=== PATIENT | female | born 1965 | race Caucasian/White ===

== ENCOUNTER 2017-03-25 21:00 | Emergency (ER) | payer MEDICAID ==
[2017-03-25 21:43] VITALS: BP 164/98
--- NOTE | 2017-03-25 22:22 | EDM.PDOC ---
ED HPI GENERAL MEDICAL PROBLEM - General Chief Complaint: Genitourinary Problem Stated Complaint: BLADDER/UTI? Time Seen by Provider: 03/25/17 21:46 Source of Information: Reports: Patient History Limitations: Reports: No Limitations - History of Present Illness INITIAL COMMENTS - FREE TEXT/NARRATIVE: 51 yo female presents with burning and itching external genitalia. scant Curd like discharge with red inflammation reported by pt. UTI 2 weeks ago treated with antibiotics and she commonly gets yeast infections after antibiotics. Epigastric pain worse after she uses ibuprofen and also after vomiting. But she does clarify that she was vomiting because she had drank to much alcohol the night before. Pain in upper ABD is rather mild tonight and she does not desire to evaluate this pain in the ER she would like to follow up with her primary care provider. 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, NSAIDS lower abdomen pain Pain Score (Numeric/FACES): 7 - Related Data Allergies Allergy/AdvReac Type Severity Reaction Status Date / Time celecoxib [From Celebrex] Allergy Airway Verified 03/25/17 21:45 Tightness Sulfa (Sulfonamide Allergy Airway Verified 03/25/17 21:45 Antibiotics) Tightness Tetracyclines Allergy Airway Verified 03/25/17 21:45 Tightness Home Meds: Home Meds Carvedilol [Coreg] 12.5 mg PO BID 03/25/17 [History] Cyclobenzaprine [Flexeril] 10 mg PO TID 03/25/17 [History] HCTZ/Triamterene [Dyazide 25-37.5 MG] 1 cap PO DAILY 03/25/17 [History] Levothyroxine Sodium [Synthroid] 25 mcg PO ACBREAKFAST 03/25/17 [History] atorvaSTATin [Lipitor] 20 mg PO BEDTIME 03/25/17 [History] Past Medical History HEENT History: Reports: Impaired Vision Cardiovascular History: Reports: High Cholesterol, Hypertension Respiratory History: Reports: COPD Gastrointestinal History: Reports: Irritable Bowel Syndrome Genitourinary History: Reports: UTI, Recurrent 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: Endometrial Ablation, Musculoskeletal History: Reports: Back Pain, Chronic, Other (See Below) Other Musculoskeletal History: Chronic right hip pain Neurological History: Reports: None Psychiatric History: Reports: None Endocrine/Metabolic History: Reports: Hypothyroidism Hematologic History: Reports: None Immunologic History: Reports: None Oncologic (Cancer) History: Reports: None Dermatologic History: Reports: None - Infectious Disease History Infectious Disease History: Reports: Chicken Pox - Past Surgical History HEENT Surgical History: Reports: None Cardiovascular Surgical History: Reports: None Respiratory Surgical History: Reports: None GI Surgical History: Reports: Appendectomy, Cholecystectomy, Colonoscopy Female Surgical History: Reports: Cervical Conization, Tubal Ligation Endocrine Surgical History: Reports: None Neurological Surgical History: Reports: None Musculoskeletal Surgical History: Reports: None Oncologic Surgical History: Reports: Biopsy of Breast Dermatological Surgical History: Reports: None Social & Family History - Tobacco Use Smoking Status *Q: Current Every Day Smoker Years of Tobacco use: 3 Packs/Tins Daily: 1.5 - Caffeine Use Caffeine Use: Reports: Tea - Recreational Drug Use Recreational Drug Use: No ED ROS GENERAL - Review of Systems Review Of Systems: See Below Constitutional: Denies: Fever, Chills Respiratory: Denies: Shortness of Breath, Wheezing Cardiovascular: Denies: Chest Pain GI/Abdominal: Reports: Abdominal Pain. Denies: Diarrhea : Reports: Dysuria ED EXAM, GI/ABD - Physical Exam Exam: See Below Exam Limited By: No Limitations General Appearance: Alert, WD/WN, No Apparent Distress Head: Atraumatic, Normocephalic Respiratory/Chest: No Respiratory Distress, Lungs Clear, Normal Breath Sounds. No: Crackles, Rhonchi, Wheezing Cardiovascular: Regular Rate, Rhythm, No Murmur GI/Abdominal: Normal Bowel Sounds, Soft, Tenderness (RUQ and epigastric) Back Exam: No: CVA Tenderness (R), CVA Tenderness (L) Neurological: Alert, Oriented Psychiatric: Normal Affect Skin Exam: Warm, Dry, Intact Course - Vital Signs Last Recorded V/S: Last Vital Signs Temp 36.6 C 03/25/17 21:41 Pulse 99 03/25/17 21:41 Resp 16 03/25/17 21:41 BP 164/98 H 03/25/17 21:41 Pulse Ox 98 03/25/17 21:41 - Orders/Labs/Meds Labs: Laboratory Tests 03/25/17 Range/Units 21:43 Urine Color Yellow Urine Appearance Clear Urine pH 5.0 (4.5-8.0) Ur Specific [place] 1.010 (1.008-1.030) Urine Protein Negative (NEGATIVE) mg/dL Urine Glucose (UA) Normal (NEGATIVE) mg/dL Urine Ketones Negative (NEGATIVE) mg/dL Urine Occult Blood Negative (NEGATIVE) Urine Nitrite Negative (NEGATIVE) Urine Bilirubin Negative (NEGATIVE) Urine Urobilinogen Normal (NORMAL) mg/dL Ur Leukocyte Esterase Negative (NEGATIVE) Urine RBC 0-5 (0-5) Urine WBC Not seen (0-5) Ur Epithelial Cells Rare Amorphous Sediment Not seen Urine Bacteria Not seen Urine Mucus Not seen Meds: Medications Discontinued Medications Generic Name Dose Route Start Last Admin Trade Name Freq PRN Reason Stop Dose Admin Fluconazole 150 mg 03/25/17 22:24 Diflucan PO 03/25/17 22:25 ONETIME ONE - Re-Assessments/Exams Free Text/Narrative Re-Assessment/Exam: 03/25/17 22:34 NOrmal UA will treat for yeast infection with 1 time dose diflucan in ER. Pt does not desire to stay for evaluation of her RUQ and epigastric pain because it is mild tonight. she will follow up with primary care Departure - Departure Time of Disposition: 22:22 Disposition: Home, Self-Care 01 Condition: Good Clinical Impression: Candidal vulvitis - Discharge Information Referrals: PCP,None [Primary Care Provider] - Forms: ED Department Discharge Additional Instructions: follow-up with primary care provider regarding right upper abdominal pain. limit amount of ibuprofen you take to 400 mg every 6 hours with food. If you are having stomach pain do not take ibuprofen
[2017-03-25] MEDS ORDERED: Fluconazole 150 MG Tab PO ONE (22:24)
== END 2017-03-25 23:19 | disposition home or self-care (01) ==
LOC: JP.ED 21:00
DX: B37.3 Candidiasis of vulva and vagina (principal); I10 Essential (primary) hypertension; E78.00 Pure hypercholesterolemia, unspecified; E03.9 Hypothyroidism, unspecified; J44.9 Chronic obstructive pulmonary disease, unspecified; Z90.49 Acquired absence of other specified parts of digestive tract; Z98.890 Other specified postprocedural states; Z98.51 Tubal ligation status; F17.210 Nicotine dependence, cigarettes, uncomplicated; Z88.1 Allergy status to other antibiotic agents; Z88.2 Allergy status to sulfonamides; Z88.8 Allergy status to other drugs, medicaments and biological substances; Z79.899 Other long term (current) drug therapy; Z87.440 Personal history of urinary (tract) infections
CPT/HCPCS: 81001; 99284; A9270; 99282

== ENCOUNTER 2017-05-03 17:17 | Emergency (ER) | payer MEDICAID ==
[2017-05-03] MEDS ORDERED: methylPREDNISolone Sodium Succinate 125 MG/2 ML SDV IM ONE (17:35)
[2017-05-03] MEDS ORDERED: diphenhydrAMINE 50 MG/ML SDV IM ONE (17:35)
[2017-05-03 18:34] VITALS: BP 157/93
--- NOTE | 2017-05-26 08:39 | ER ---
DATE OF SERVICE: 05/03/2017 HISTORY OF PRESENT ILLNESS: Rubi appeared at the emergency room stating that she was thinking that she had an allergic reaction, she had facial swelling, she had a rash on her back, and felt generalized itching. The patient had eaten a plum just shortly prior to this and also had changed the cat litter and this was a different brand of cat litter that she was using at this time. Rubi was not in respiratory distress. She felt a little tight in her throat. She did not have any problems in terms of dizziness or feeling like her heart was pounding. The patient had good vital signs and was having no discomfort. PAST MEDICAL HISTORY: Was not significant for serious allergy issues. The patient was found to have a pulse of 91, temperature was normal, and she had good oxygen saturation at 97. PHYSICAL EXAMINATION: GENERAL: On exam, she was an alert and oriented 51-year-old white female. She had some obvious facial swelling, and she did have a rash on her back, which looks like it had been urticarial, but was more flat at this time. HEENT: Her pupils were equal and reactive. Her ears were clear. Nose, mouth, and throat were negative. CHEST: Her chest revealed no significant wheezing. CARDIAC: Revealed a regular rhythm without ectopy present. ABDOMEN: The patient's abdomen showed no tenderness or guarding. No CVA tenderness is present. EXTREMITIES: Normal. NEUROLOGIC: She was normal. The patient had not used Benadryl at home and she was given Benadryl 50 mg. She was then also given Solu-Medrol 125 mg. She was observed here in the ER and now she continued to feel better and better and felt like the facial swelling was going down. For that reason, she was discharged home and advised to use Benadryl 50 mg at least once or twice more every 6 hours. The patient's discharge diagnosis was an allergic reaction, unknown cause, possibly a plum or cat litter. Marianna Bill MD /[id number]
== END 2017-05-03 19:05 | disposition home or self-care (01) ==
LOC: JP.ED 17:17
DX: T78.40XA Allergy, unspecified, initial encounter (principal)
CPT/HCPCS: 96372; 99283; J1200; J2930

== ENCOUNTER 2017-06-09 19:05 | Emergency (ER) | payer MEDICAID ==
[2017-06-09 19:28] VITALS: BP 132/80
[2017-06-09] MEDS ORDERED: Alum Hydrox/Mag Hydrox/Simeth 30 ML, Lidocaine 2% 15 ML PO ONE ×2 (19:39)
[2017-06-09] MEDS ORDERED: Sodium Chloride 0.9% 10 ML Syringe FLUSH PRN ×2 (20:35→21:12)
[2017-06-09] MEDS ORDERED: Ondansetron 4 MG/2 ML SDV IVPUSH ONE (20:36)
[2017-06-09] MEDS ORDERED: HYDROmorphone 1 MG/ML Syringe IVPUSH ONE (20:36)
[2017-06-09] MEDS ORDERED: Iopamidol 612 MG/ML 150 ML Bottle IV SCH (21:15)
--- NOTE | 2017-06-09 21:23 | EDM.PDOC ---
ED HPI GENERAL MEDICAL PROBLEM - General Chief Complaint: Abdominal Pain Stated Complaint: ABDOMINAL PAIN Time Seen by Provider: 06/09/17 19:31 Source of Information: Reports: Patient History Limitations: Reports: No Limitations - History of Present Illness INITIAL COMMENTS - FREE TEXT/NARRATIVE: This lady complains of right upper quadrant abdominal pain. She's had pain in this area for about a year. The pain has suddenly gotten worse the past few days. She is occasionally mentioned this to her doctor but says nothing has been done. Previously she had a cholecystectomy and appendectomy in the more distant past. She thinks maybe she is taken to much NSAIDs. She said that when she takes ibuprofen it seems to make it worse. She denies a history of ulcers. She hasn't tried anything like antacid. She's had some nausea but not vomiting. Bowels are normal she denies fever Right Upper Abdominal Pain Score (Numeric/FACES): 10 - Related Data Allergies Allergy/AdvReac Type Severity Reaction Status Date / Time celecoxib [From Celebrex] Allergy Airway Verified 06/09/17 19:17 Tightness pregabalin [From Lyrica] Allergy Cannot Verified 06/09/17 19:17 Remember Sulfa (Sulfonamide Allergy Airway Verified 06/09/17 19:17 Antibiotics) Tightness Tetracyclines Allergy Airway Verified 06/09/17 19:17 Tightness Home Meds: Home Meds Carvedilol [Coreg] 12.5 mg PO BID 03/25/17 [History] Cyclobenzaprine [Flexeril] 10 mg PO TID 03/25/17 [History] HCTZ/Triamterene [Dyazide 25-37.5 MG] 0.5 cap PO DAILY 03/25/17 [History] Levothyroxine Sodium [Synthroid] 25 mcg PO ACBREAKFAST 03/25/17 [History] atorvaSTATin [Lipitor] 40 mg PO BEDTIME 03/25/17 [History] Albuterol Sulfate [Proair Respiclick] 2 puff IH Q6HR PRN 04/27/17 [History] Beclomethasone Dipropionate [Qvar 80 Mcg] 2 puff IH BID 04/27/17 [History] buPROPion HCl [Wellbutrin SR] 150 mg PO DAILY 04/27/17 [History] traMADol HCl [Tramadol HCl] 50 mg PO Q6HR PRN 04/27/17 [History] Loratadine [Claritin] 10 mg PO DAILY 05/31/17 [History] Past Medical History HEENT History: Reports: Allergic Rhinitis, Hard of Hearing, Impaired Vision Cardiovascular History: Reports: Arrhythmia, High Cholesterol, Hypertension Respiratory History: Reports: Asthma, Bronchitis, Recurrent, COPD Gastrointestinal History: Reports: Irritable Bowel Syndrome Genitourinary History: Reports: Pyelonephritis, UTI, Recurrent 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: Dysfunctional Uterine Bleeding, Endometrial Ablation, Musculoskeletal History: Reports: Back Pain, Chronic, Other (See Below) Other Musculoskeletal History: Chronic right hip pain Neurological History: Reports: None Psychiatric History: Reports: None, Anxiety, Depression Endocrine/Metabolic History: Reports: Hypothyroidism Hematologic History: Reports: Anemia Immunologic History: Reports: None Oncologic (Cancer) History: Reports: None Dermatologic History: Reports: None - Infectious Disease History Infectious Disease History: Reports: Chicken Pox, Hepatitis A - Past Surgical History HEENT Surgical History: Reports: None Cardiovascular Surgical History: Reports: None Respiratory Surgical History: Reports: None GI Surgical History: Reports: Appendectomy, Cholecystectomy, Colonoscopy Female Surgical History: Reports: Cervical Conization, Tubal Ligation Endocrine Surgical History: Reports: None Neurological Surgical History: Reports: None Musculoskeletal Surgical History: Reports: None Oncologic Surgical History: Reports: Biopsy of Breast Dermatological Surgical History: Reports: None Social & Family History - Tobacco Use Smoking Status *Q: Current Every Day Smoker Years of Tobacco use: 4 Packs/Tins Daily: 1 - Caffeine Use Caffeine Use: Reports: Tea - Recreational Drug Use Recreational Drug Use: No ED ROS GENERAL - Review of Systems Review Of Systems: ROS reveals no pertinent complaints other than HPI. ED EXAM, GI/ABD - Physical Exam Exam: See Below Exam Limited By: No Limitations General Appearance: Alert, WD/WN, Mild Distress Eyes: Bilateral: Normal Appearance Throat/Mouth: Normal Inspection Respiratory/Chest: Lungs Clear Cardiovascular: Regular Rate, Rhythm GI/Abdominal Exam: Normal Bowel Sounds, Soft, Tender (Moderate right upper quadrant tenderness) Extremities: Normal Inspection Neurological: Alert, Oriented Psychiatric: Normal Affect Skin Exam: Warm, Dry Course - Vital Signs Last Recorded V/S: Last Vital Signs Temp 36.2 C 06/09/17 19:28 Pulse 76 06/09/17 19:28 Resp 19 06/09/17 19:28 BP 132/80 06/09/17 19:28 Pulse Ox 99 06/09/17 19:28 - Orders/Labs/Meds Orders: Active Orders 24 hr Category Date Time Status Abdomen Pelvis w Cont [CT] Stat Exams 06/09/17 20:35 Taken Iopamidol [Isovue-300 (61%)] Med 06/09/17 21:15 Active 128 ml IV . DIRECTED Sodium Chloride 0.9% [Saline Flush] Med 06/09/17 20:35 Active 10 ml FLUSH ASDIRECTED PRN Sodium Chloride 0.9% [Saline Flush] Med 06/09/17 21:12 Active 10 ml FLUSH ONETIME PRN Saline Lock Insert [OM.PC] Urgent Oth 06/09/17 20:35 Ordered Medication Orders Iopamidol (Isovue-300 (61%)) 128 ml IV . DIRECTED [facility] Last Admin: 06/09/17 21:33 Dose: 150 ml Sodium Chloride (Saline Flush) 10 ml FLUSH ASDIRECTED PRN PRN Reason: Keep Vein Open Last Admin: 06/09/17 21:00 Dose: 10 ml Sodium Chloride (Saline Flush) 10 ml FLUSH ONETIME PRN PRN Reason: PER RADIOLOGY PROTOCOL Last Admin: 06/09/17 21:33 Dose: 10 ml Labs: Laboratory Tests 06/09/17 06/09/17 06/09/17 Range/Units 20:34 20:34 20:34 WBC 14.6 H (4.5-11.0) K/uL RBC 4.95 (3.30-5.50) M/uL Hgb 15.9 H (12.0-15.0) g/dL Hct 44.8 (36.0-48.0) % MCV 91 (80-98) fL MCH 32 H (27-31) pg MCHC 36 (32-36) % Plt Count 180 (150-400) K/uL Neut % (Auto) 78 H (36-66) % Lymph % (Auto) 14 L (24-44) % [place] % (Auto) 8 H (2-6) % Eos % (Auto) 1 L (2-4) % Baso % (Auto) 0 (0-1) % Sodium 139 L (140-148) mmol/L Potassium 3.5 L (3.6-5.2) mmol/L Chloride 101 (100-108) mmol/L Carbon Dioxide 26 (21-32) mmol/L Anion Gap 15.5 H (5.0-14.0) mmol/L BUN 17 (7-18) mg/dL Creatinine 0.7 (0.6-1.0) mg/dL Est Cr Clr Drug Dosing 100.51 mL/min Estimated GFR (MDRD) > 60 (>60) Glucose 97 (74-106) mg/dL Calcium 9.1 (8.5-10.1) mg/dL Total Bilirubin 0.7 (0.2-1.0) mg/dL AST 17 (15-37) U/L ALT 22 (12-78) U/L Alkaline Phosphatase 77 (46-116) U/L Total Protein 6.9 (6.4-8.2) g/dL Albumin 3.9 (3.4-5.0) g/dL Globulin 3.0 (2.3-3.5) g/dL Albumin/Globulin Ratio 1.3 (1.2-2.2) Amylase 74 (25-115) U/L Lipase 322 (73-393) U/L Urine Color Urine Appearance Urine pH (4.5-8.0) Ur Specific [place] (1.008-1.030) Urine Protein (NEGATIVE) mg/dL Urine Glucose (UA) (NEGATIVE) mg/dL Urine Ketones (NEGATIVE) mg/dL Urine Occult Blood (NEGATIVE) Urine Nitrite (NEGATIVE) Urine Bilirubin (NEGATIVE) Urine Urobilinogen (NORMAL) mg/dL Ur Leukocyte Esterase (NEGATIVE) Urine RBC (0-5) Urine WBC (0-5) Ur Epithelial Cells Amorphous Sediment Urine Bacteria Urine Mucus 06/09/17 Range/Units 21:22 WBC (4.5-11.0) K/uL RBC (3.30-5.50) M/uL Hgb (12.0-15.0) g/dL Hct (36.0-48.0) % MCV (80-98) fL MCH (27-31) pg MCHC (32-36) % Plt Count (150-400) K/uL Neut % (Auto) (36-66) % Lymph % (Auto) (24-44) % [place] % (Auto) (2-6) % Eos % (Auto) (2-4) % Baso % (Auto) (0-1) % Sodium (140-148) mmol/L Potassium (3.6-5.2) mmol/L Chloride (100-108) mmol/L Carbon Dioxide (21-32) mmol/L Anion Gap (5.0-14.0) mmol/L BUN (7-18) mg/dL Creatinine (0.6-1.0) mg/dL Est Cr Clr Drug Dosing mL/min Estimated GFR (MDRD) (>60) Glucose (74-106) mg/dL Calcium (8.5-10.1) mg/dL Total Bilirubin (0.2-1.0) mg/dL AST (15-37) U/L ALT (12-78) U/L Alkaline Phosphatase (46-116) U/L Total Protein (6.4-8.2) g/dL Albumin (3.4-5.0) g/dL Globulin (2.3-3.5) g/dL Albumin/Globulin Ratio (1.2-2.2) Amylase (25-115) U/L Lipase (73-393) U/L Urine Color Yellow Urine Appearance Clear Urine pH 6.0 (4.5-8.0) Ur Specific [place] 1.015 (1.008-1.030) Urine Protein Negative (NEGATIVE) mg/dL Urine Glucose (UA) Normal (NEGATIVE) mg/dL Urine Ketones Negative (NEGATIVE) mg/dL Urine Occult Blood Negative (NEGATIVE) Urine Nitrite Negative (NEGATIVE) Urine Bilirubin Negative (NEGATIVE) Urine Urobilinogen Normal (NORMAL) mg/dL Ur Leukocyte Esterase Moderate (NEGATIVE) Urine RBC 0-5 (0-5) Urine WBC 5-10 H (0-5) Ur Epithelial Cells Moderate Amorphous Sediment Few Urine Bacteria Rare Urine Mucus Few Meds: Medications Generic Name Dose Route Start Last Admin Trade Name Freq PRN Reason Stop Dose Admin Iopamidol 128 ml 06/09/17 21:15 06/09/17 21:33 Isovue-300 (61%) IV 150 ml . DIRECTED KELECHI Administration Sodium Chloride 10 ml 06/09/17 20:35 06/09/17 21:00 Saline Flush FLUSH 10 ml ASDIRECTED PRN Administration Keep Vein Open Sodium Chloride 10 ml 06/09/17 21:12 06/09/17 21:33 Saline Flush FLUSH 10 ml ONETIME PRN Administration PER RADIOLOGY PROTOCOL Discontinued Medications Generic Name Dose Route Start Last Admin Trade Name Ellie PRN Reason Stop Dose Admin Al Hydroxide/Mg Hydroxide 30 0 ml 06/09/17 19:39 06/09/17 19:59 ml/ Lidocaine HCl 15 ml PO 06/09/17 19:40 30 ml ONETIME ONE Administration Hydromorphone HCl 1 mg 06/09/17 20:36 06/09/17 21:00 Dilaudid IVPUSH 06/09/17 20:37 1 mg ONETIME ONE Administration Sodium Chloride 79 mls @ 3 mls/sec 06/09/17 21:12 06/09/17 21:33 Normal Saline IV 06/09/17 21:13 3 mls/sec ONETIME ONE Administration Ondansetron HCl 4 mg 06/09/17 20:36 06/09/17 21:00 Zofran IVPUSH 06/09/17 20:37 4 mg ONETIME ONE Administration - Re-Assessments/Exams Free Text/Narrative Re-Assessment/Exam: 06/09/17 21:38 Patient was given a GI cocktail consisting of 15 mL of lidocaine with 30 of Maalox. She said this gave absolutely no relief. I'll proceed to work her up including of labs abdominal CT and IV pain meds Free Text/Narrative Re-Assessment/Exam: 06/09/17 22:35 She received good pain relief from medications but distorted get a little bit more pain now. CT showed possibly a small area of pancreatitis. Plan will be to put her on clear liquid diet. All send her out on some Percocet 5/325 15 tablets one or 2 every 4 hours as well as some Zofran ODT. Would like her to follow-up with her doctor tomorrow and if put in a appointment request. Standard precautions were given for Percocet Departure - Departure Time of Disposition: 22:36 Disposition: Home, Self-Care 01 Condition: Fair Clinical Impression: Abdominal pain - Discharge Information Referrals: Justin Terry NP [Primary Care Provider] - Forms: ED Department Discharge Additional Instructions: Test showed that you may have mild pancreatitis. For pain take Percocet 5/325 one or 2 tablets every 4 hours. This medication can cause sedation and impair driving. It can be habit-forming if taken for more than a week or 2. For nausea use Zofran 4 mg sublingual every 6-8 hours. Strict clear liquid diet. Please follow-up in clinic tomorrow. Return to ER at any time if needed - My Orders Last 24 Hours: My Active Orders 06/09/17 20:35 Abdomen Pelvis w Cont [CT] Stat Sodium Chloride 0.9% [Saline Flush] 10 ml FLUSH ASDIRECTED PRN Saline Lock Insert [OM.PC] Urgent 06/09/17 21:12 Sodium Chloride 0.9% [Saline Flush] 10 ml FLUSH ONETIME PRN 06/09/17 21:15 Iopamidol [Isovue-300 (61%)] 128 ml IV . DIRECTED - Assessment/Plan Last 24 Hours: My Active Orders 06/09/17 20:35 Abdomen Pelvis w Cont [CT] Stat Sodium Chloride 0.9% [Saline Flush] 10 ml FLUSH ASDIRECTED PRN Saline Lock Insert [OM.PC] Urgent 06/09/17 21:12 Sodium Chloride 0.9% [Saline Flush] 10 ml FLUSH ONETIME PRN 06/09/17 21:15 Iopamidol [Isovue-300 (61%)] 128 ml IV . DIRECTED
== END 2017-06-09 22:50 | disposition home or self-care (01) ==
LOC: JP.ED 19:05
DX: R10.11 Right upper quadrant pain (principal); I10 Essential (primary) hypertension; E78.00 Pure hypercholesterolemia, unspecified; J44.9 Chronic obstructive pulmonary disease, unspecified; F32.9 Major depressive disorder, single episode, unspecified; F17.210 Nicotine dependence, cigarettes, uncomplicated; E03.9 Hypothyroidism, unspecified; Z98.51 Tubal ligation status; Z86.2 Personal history of diseases of the blood and blood-forming organs and certain disorders involving the immune mechanism; Z87.440 Personal history of urinary (tract) infections; Z90.49 Acquired absence of other specified parts of digestive tract; Z79.899 Other long term (current) drug therapy; Z88.2 Allergy status to sulfonamides; Z88.1 Allergy status to other antibiotic agents; Z88.8 Allergy status to other drugs, medicaments and biological substances
CPT/HCPCS: 36415; 74177; 80053; 81001; 82150; 83690; 85025; 96374; 96375; 99284; A9270; J1170; J2405; J7030; J7050